=== PATIENT | female | born 1985 | race African-American/Black ===

== ENCOUNTER 2017-10-26 14:23 | Emergency (ER) | payer SELFPAY ==
[2017-10-26 15:29] LABS: Absolute Lymphocytes (CBC) 2.3 K/uL (0.7-4.9); Absolute Monocytes 0.4 K/uL (0.1-1.3); Basophils % 1.3 % (0-1.3); Eosinophils % 4.2 % (0-4.4); Hematocrit 34.3 % (36.0-45.0); Lymphocytes % 32.1 % (15.3-44.8); MPV 10.1 fL (7.6-11.3); Monocytes % 5.2 % (3.3-12.3); RBC Red Blood Cell Count 3.85 M/uL (3.86-4.86)
[2017-10-26 15:55] LABS: Blood Morphology Comment NOT SEEN (NOT SEEN); Platelet Estimate ADEQ; Urine White Blood Cell Casts OK
[2017-10-26 16:16] LABS: Potassium 4.1 mEq/L (3.6-5.0)
[2017-10-26 16:19] LABS: Protime INR 1.01
[2017-10-26 16:22] LABS: Albumin 3.9 g/dL (3.2-5.5); Bilirubin Direct 0.1 mg/dL (0-0.2); Bilirubin Total 0.2 mg/dL (0.3-1.2); Magnesium 1.8 mg/dL (1.8-2.5); Protein, Total 7.3 g/dL (6.0-8.3)
[2017-10-26 16:56] LABS: Urine Blood NEGATIVE (NEG); Urine Glucose NEGATIVE (NEG); Urine Protein NEGATIVE (NEG)
--- NOTE | 2017-10-26 17:44 | RAD REPORT ---
EXAM DESCRIPTION: CT - Chest For Pe Angio - 10/26/2017 5:40 pm CLINICAL HISTORY: Chest pain. COMPARISON: None. TECHNIQUE: CT angiogram of the pulmonary arteries was performed with MIP. All CT scans are performed using dose optimization technique as appropriate and may include automated exposure control or mA/KV adjustment according to patient size. FINDINGS: No evidence of pulmonary thromboembolism. No acute aortic finding demonstrated. The lungs are clear. No significant pericardial or pleural fluid. No concerning bony finding. Small hiatal hernia. IMPRESSION: No evidence of pulmonary thromboembolism. No acute lung findings.
--- NOTE | 2017-10-26 18:24 | ER ---
Nurse's Notes [facility] Name: Leona Kilpatrick Age: 32 yrs Sex: Female : 1985 Arrival Date: 10/26/2017 Time: 14:25 Bed 26 Private MD: Diagnosis: Chest pain, unspecified Presentation: 10/26 14:31 Presenting complaint: Patient states: I have been having chest pain, dizziness, arm la1 pain for the last week. Transition of care: patient was not received from another setting of care. Onset of symptoms was October 26, 2017. Initial Sepsis Screen: Does the patient meet any 2 criteria? No. Patient's initial sepsis screen is negative. Does the patient have a suspected source of infection? No. Patient's initial sepsis screen is negative. Care prior to arrival: None. 14:31 Method Of Arrival: Ambulatory la1 14:31 Acuity: MARLIN 3 la1 Triage Assessment: 14:31 Headache History: Denies prior headaches. General: Appears in no apparent distress. hj uncomfortable, Behavior is calm, cooperative, appropriate for age. 14:31 Pain: Pain Pain began Also complains of. Neuro: Level of Consciousness is awake, alert, hj obeys commands, Oriented to person, place, time, situation, Appropriate for age. 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 - Social history:: Smoking status: Patient/guardian denies using tobacco. Screenin:31 Abuse screen: Denies threats or abuse. Denies injuries from another. Nutritional hj screening: No deficits noted. Tuberculosis screening: No symptoms or risk factors identified. Fall Risk None identified. Assessment: 14:32 General: Appears in no apparent distress. uncomfortable, Behavior is calm, cooperative, hj appropriate for age. Pain: Complains of pain in head. Neuro: Level of Consciousness is awake, alert, obeys commands, Oriented to person, place, time, situation, Appropriate for age. Cardiovascular: Capillary refill < 3 seconds Patient's skin is warm and dry. Respiratory: Airway is patent Respiratory effort is even, unlabored, Respiratory pattern is regular, symmetrical. GI: No signs and/or symptoms were reported involving the gastrointestinal system. : No signs and/or symptoms were reported regarding the genitourinary system. EENT: No signs and/or symptoms were reported regarding the EENT system. Derm: No signs and/or symptoms reported regarding the dermatologic system. Musculoskeletal: No signs and/or symptoms reported regarding the musculoskeletal system. 15:30 Reassessment: Patient and/or family updated on plan of care and expected duration. Pain hj level reassessed. Patient is alert, oriented x 3, equal unlabored respirations, skin warm/dry/pink. 16:30 Reassessment: Patient and/or family updated on plan of care and expected duration. Pain hj level reassessed. Patient is alert, oriented x 3, equal unlabored respirations, skin warm/dry/pink. Patient states feeling better. 17:43 Reassessment: Patient and/or family updated on plan of care and expected duration. Pain hj level reassessed. Patient is alert, oriented x 3, equal unlabored respirations, skin warm/dry/pink. Patient states feeling better. Vital Signs: 14:32 BP 134 / 84; Pulse 91; Resp 19; Temp 98.4; Pulse Ox 100% on R/A; Weight 75.3 kg; Height la1 5 ft. 0 in. (152.40 cm); 15:30 BP 135 / 87; Pulse 90; Resp 18; Pulse Ox 100% on R/A; hj 16:30 BP 139 / 84; Pulse 88; Resp 18; Pulse Ox 100% on R/A; hj 17:56 BP 135 / 85; Pulse 89; Resp 18; Pulse Ox 100% on R/A; hj 18:13 BP 134 / 92 Supine; Pulse 88; Resp 16; Pulse Ox 100% on R/A; hj 18:13 BP 132 / 88 Sitting; Pulse 82; Resp 16; Pulse Ox 100% on R/A; hj 18:13 BP 144 / 90 Standing; Pulse 80; Resp 16; Pulse Ox 100% on R/A; hj 14:32 Body Mass Index 32.42 (75.30 kg, 152.40 cm) la1 ED Course: 14:25 Patient arrived in ED. rg4 14:31 Patient has correct armband on for positive identification. Placed in gown. Bed in low hj position. Call light in reach. Side rails up X 1. 14:32 Triage completed. la1 14:32 Arm band placed on left wrist. la1 14:37 Cipriano Campbell, RN is Primary Nurse. hj 14:51 Deng Kunz PA is PHCP. cp 14:51 Deng Washington MD is Attending Physician. cp 16:24 Notified Nurse Practitioner and/or Physician Warehouse And Receiving Supervisor of a critical lab result(s), la1 ddimer 686. 16:49 Radiology exam delayed due to IV insertion attempt and/or patient not having bq appropriate IV at this time. 17:21 Inserted saline lock: 20 gauge in left antecubital area, using aseptic technique. iw Missed attempt(s): 22 gauge in right antecubital area. Bleeding controlled, band aid applied, catheter tip intact. 17:40 CT completed. Patient moved to CT via wheelchair. Patient moved back from CT. bq 17:40 CT Chest For PE Angio In Process Unspecified. EDMS 18:40 No provider procedures requiring assistance completed. IV discontinued, intact, hj bleeding controlled, No redness/swelling at site. Pressure dressing applied. Administered Medications: No medications were administered Outcome: 18:23 Discharge ordered by MD. cp 18:40 Discharged to home ambulatory, with family. hj 18:40 Condition: stable 18:40 Discharge instructions given to patient, Instructed on discharge instructions, follow up and referral plans. Demonstrated understanding of instructions, follow-up care. 18:45 Patient left the ED. hj Signatures: Dispatcher [employer] EDNM Nevaeh Talbert Irene, RN RN iw Attema, Lee, RN RN la1 Cipriano Campbell RN RN hj Page, Corey, PA PA cp Garcia, Rubi 4
--- NOTE | 2017-10-26 18:24 | EDPHYS ---
Physician Documentation [facility] Name: Leona Kilpatrick Age: 32 yrs Sex: Female : 1985 Arrival Date: 10/26/2017 Time: 14:25 Bed 26 Private MD: ED Physician Deng Washington HPI: 10/26 15:23 This 32 yrs old Black Female presents to ER via Ambulatory with complaints of Headache, cp Dizziness, Numbness. 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 - Social history:: Smoking status: Patient/guardian denies using tobacco. ROS: 15:27 Constitutional: Negative for body aches, chills, fever, poor PO intake. cp 15:27 Eyes: Negative for injury, pain, redness, and discharge. cp 15:27 ENT: Negative for drainage from ear(s), ear pain, sore throat, difficulty swallowing, difficulty handling secretions. 15:27 Cardiovascular: Positive for chest pain, Negative for edema, palpitations. 15:27 Respiratory: Negative for cough, wheezing. 15:27 Abdomen/GI: Negative for abdominal pain, nausea, vomiting, and diarrhea, anorexia, black/tarry stool, rectal bleeding. 15:27 Back: Negative for pain at rest, pain with movement, radiated pain. 15:27 : Negative for urinary symptoms. 15:27 Skin: Negative for cellulitis, rash. 15:27 Neuro: Positive for intermittent dizziness, Negative for altered mental status, headache, syncope, near syncope, weakness. 15:27 All other systems are negative. Exam: 15:05 ECG was reviewed by the Attending Physician. cp 15:30 Constitutional: The patient appears in no acute distress, alert, awake, cp non-diaphoretic, non-toxic, well developed, well nourished. 15:30 Head/Face: Normocephalic, atraumatic. Eyes: Pupils equal round and reactive to light, cp extra-ocular motions intact. Lids and lashes normal. Conjunctiva and sclera are non-icteric and not injected. Cornea within normal limits. Periorbital areas with no swelling, redness, or edema. ENT: Nares patent. No nasal discharge, no septal abnormalities noted. Tympanic membranes are normal and external auditory canals are clear. Oropharynx with no redness, swelling, or masses, exudates, or evidence of obstruction, uvula midline. Mucous membranes moist. Chest/axilla: Normal chest wall appearance and motion. Nontender with no deformity. No lesions are appreciated. 15:30 Cardiovascular: Rate: normal, Rhythm: regular, Pulses: Pulses are 2+ in right radial artery and left radial artery. Heart sounds: murmur, not appreciated, rub, not appreciated, gallop, not appreciated, Edema: is not appreciated, JVD: is not appreciated. 15:30 Respiratory: the patient does not display signs of respiratory distress, Respirations: normal, no use of accessory muscles, no retractions, no splinting, no tachypnea, labored breathing, is not present, Breath sounds: are clear throughout, no decreased breath sounds, no stridor, no wheezing. 15:30 Abdomen/GI: Inspection: abdomen appears normal, Bowel sounds: active, all quadrants, Palpation: abdomen is soft and non-tender, in all quadrants, rebound tenderness, is not appreciated, voluntary guarding, is not appreciated, involuntary guarding, is not appreciated. 15:30 Back: pain, is absent, ROM is normal. 15:30 Skin: cellulitis, is not appreciated, no rash present. 15:30 Neuro: Orientation: to person, place \T\ time. Mentation: is normal, Cerebellar function: is grossly normal, Motor: moves all fours, strength is normal, Sensation: no obvious gross deficits. Vital Signs: 14:32 BP 134 / 84; Pulse 91; Resp 19; Temp 98.4; Pulse Ox 100% on R/A; Weight 75.3 kg; Height la1 5 ft. 0 in. (152.40 cm); 15:30 BP 135 / 87; Pulse 90; Resp 18; Pulse Ox 100% on R/A; hj 16:30 BP 139 / 84; Pulse 88; Resp 18; Pulse Ox 100% on R/A; hj 17:56 BP 135 / 85; Pulse 89; Resp 18; Pulse Ox 100% on R/A; hj 18:13 BP 134 / 92 Supine; Pulse 88; Resp 16; Pulse Ox 100% on R/A; hj 18:13 BP 132 / 88 Sitting; Pulse 82; Resp 16; Pulse Ox 100% on R/A; hj 18:13 BP 144 / 90 Standing; Pulse 80; Resp 16; Pulse Ox 100% on R/A; hj 14:32 Body Mass Index 32.42 (75.30 kg, 152.40 cm) la1 MDM: 14:51 Patient medically screened. cp 15:00 Differential diagnosis: cluster headache, migraine, otitis, sinusitis, pulmonary cp embolism, cardiac arrythmia, pneumothorax, electrolyte abnormality. 18:20 Data reviewed: vital signs, nurses notes, lab test result(s), EKG, radiologic studies, cp CT scan. 18:20 Test interpretation: by ED physician or midlevel provider: ECG. Counseling: I had a cp detailed discussion with the patient and/or guardian regarding: the historical points, exam findings, and any diagnostic results supporting the discharge/admit diagnosis, the presence of at least one elevated blood pressure reading (>120/80) during this emergency department visit, lab results, the need for outpatient follow up, to return to the emergency department if symptoms worsen or persist or if there are any questions or concerns that arise at home. 10/26 15:09 Order name: Basic Metabolic Panel; Complete Time: 16:24 cp 10/26 18:19 Interpretation: Normal except: GFR 78. 10/26 15:09 Order name: CBC with Diff; Complete Time: 16:24 cp 10/26 18:19 Interpretation: Normal except: RBC 3.85; HGB 11.5; HCT 34.3; PLT 143. 10/26 15:09 Order name: LFT's; Complete Time: 16:24 10/26 18:19 Interpretation: Normal except: ALK 38; BILIT 0.2. cp 10/26 15:09 Order name: Magnesium; Complete Time: 16:24 cp 10/26 15:09 Order name: PT-INR; Complete Time: 18:03 cp 10/26 15:09 Order name: Ptt, Activated; Complete Time: 18:03 cp 10/26 18:03 Interpretation: Abnormal: PTT 40.4. 10/26 14:52 Order name: EKG; Complete Time: 14:52 cp 10/26 14:52 Order name: EKG - Nurse/Tech; Complete Time: 14:56 cp 10/26 15:09 Order name: Troponin (emerg Dept Use Only); Complete Time: 16:24 cp 10/26 15:09 Order name: D-Dimer; Complete Time: 18:03 cp 10/26 18:03 Interpretation: Abnormal: D-DIMER 686. cp 10/26 15:37 Order name: CBC Smear Scan; Complete Time: 16:24 EDMS 10/26 16:26 Order name: CT Chest For PE Angio; Complete Time: 18:03 cp 10/26 18:03 Interpretation: Report reviewed. 10/26 16:40 Order name: Urine Dipstick--Ancillary (enter results); Complete Time: 18:03 eb 10/26 16:40 Order name: Urine --Ancillary (enter results); Complete Time: 18:03 eb 10/26 15:09 Order name: Urine Test (obtain specimen); Complete Time: 17:48 cp 10/26 15:09 Order name: Cardiac monitoring; Complete Time: 15:11 cp 10/26 15:09 Order name: IV Saline Lock; Complete Time: 15:50 cp 10/26 15:09 Order name: Labs collected and sent; Complete Time: 15:50 cp 10/26 15:09 Order name: O2 Per Protocol; Complete Time: 15:11 cp 10/26 15:09 Order name: O2 Sat Monitoring; Complete Time: 15:11 cp 10/26 15:09 Order name: Urine Dipstick-Ancillary (obtain specimen); Complete Time: 17:48 cp 10/26 15:09 Order name: Orthostatics; Complete Time: 18:14 cp 10/26 15:38 Order name: Labs - recollect needed; Complete Time: 15:49 eb EC:05 Rate is 73 beats/min. Rhythm is regular. NC interval is normal. QRS interval is normal. cp QT interval is normal. No ST changes noted. Interpreted by me. Reviewed by me. Administered Medications: No medications were administered Disposition: 10/26/17 18:23 Discharged to Home. Impression: Chest pain, unspecified. - Condition is Stable. - Discharge Instructions: Nonspecific Chest Pain, How to Take Your Blood Pressure, [id number], Aspirin and Your Heart. - Medication Reconciliation Form, Thank You Letter, Antibiotic Education, Prescription Opioid Use form. - Follow up: Private Physician; When: 2 - 3 days; Reason: Recheck today's complaints. - Problem is new. - Symptoms have improved. Addendum: 10/28/2017 09:08 Co-signature as Attending Physician, Deng Washington MD I agree with the assessment and c manjarrez plan of care. Signatures: Dispatcher [employer] EDDeng Rosa MD MD cha Attema, Lee RN RN la1 Cipriano Campbell RN RN hj Deng Kunz, Nithya Spicer cp
--- NOTE | 2017-10-28 07:20 | EKG ---
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
== END 2017-10-26 18:45 | disposition home or self-care (01) ==
LOC: ER 14:23
DX: R07.9 Chest pain, unspecified (principal); R42 Dizziness and giddiness
CPT/HCPCS: 36415; 71275; 80048; 80076; 81003; 81025; 83735; 84484; 85025; 85379; 85610; 85730; 93005; 99284; Q9967

== ENCOUNTER 2022-02-21 17:40 | Observation (INO) | payer SELFPAY ==
--- OUTSIDE RECORDS SUMMARY | 2022-02-21 17:42 | XMS REPORT | Continuity of Care Document ---
:1985 Author Organization [facility] t Address [address] [place] [address] Care Team Providers Name Role Phone MEHUL RÍOS Primary Care Physician Unavailable DANIEL LAZCANO Attending Clinician Unavailable Payers Payer Name Policy Type Policy Number Effective Date Expiration Date Tiera dewitt [id number] 2016 00:00:00 Problems This patient has no known problems. Allergies, Adverse Reactions, Alerts Allergy Allergy Status Severity Reaction(s) Onset Inactive Treating Comm ents Source Name Type Date Date Clinician NO KNOWN Drug Active [facility] Medications This patient has no known medications. Procedures This patient has no known procedures. Encounters Start End Encounter Admission Attending Care Care Encounter Source Date/Time Date/Time Type Type Clinicians Facility Department ID 2022-03-12 2022-03-12 Outpatient R NENO [facility] [id number] [facility] 08:15:00 08:15:00 DANIEL [id number] joey roman [facility] 2022-03-12 2022-03-12 Outpatient R NENO [facility] [id number] [facility] 08:15:00 08:15:00 DANIEL sonia [facility] Results This patient has no known results.
[2022-02-21 18:13] LABS: Absolute Lymphocytes (CBC) 0.9 K/uL (0.7-4.9); Hematocrit 33.8 % (36.0-45.0); Lymphocytes % 10.6 % (15.3-44.8); MCV 89.1 fL (80-100); MPV 9.2 fL (7.6-11.3); RBC Red Blood Cell Count 3.79 M/uL (3.86-4.86)
[2022-02-21 18:21] LABS: Urine Blood Trace-intact (Negative); Urine Glucose Negative (Negative); Urine Protein 2+ (Negative); Urine Specific Gravity 1.025 (1.005-1.030); Urine pH 5.5 (5.0-7.0)
[2022-02-21 18:54] LABS: ALT/SGPT 66 U/L (12-78); AST/SGOT 64 U/L (15-37); Albumin 3.4 g/dL (3.4-5.0); Alkaline Phosphatase 46 U/L (45-117); BUN Blood Urea Nitrogen 8 mg/dL (7-18); Bicarbonate 24 mmol/L (21-32); Bilirubin Direct 0.8 mg/dL (0-0.2); Bilirubin Total 1.5 mg/dL (0.2-1.0); Glomerular Filtration Rate 31 ml/min (=/>90); Glucose Level 98 mg/dL (74-106); Protein, Total 7.6 g/dL (6.4-8.2); Sodium Level 142 mmol/L (136-145)
[2022-02-21 18:54] LABS: Barbiturates NEGATIVE (NEGATIVE); Benzodiazepines NEGATIVE (NEGATIVE); Cocaine POSITIVE (NEGATIVE); METHAMPHETAM POSITIVE (NEGATIVE); Methadone NEGATIVE (NEGATIVE); Opiates NEGATIVE (NEGATIVE); Phencyclidine NEGATIVE (NEGATIVE); THC Cannibis NEGATIVE (NEGATIVE)
[2022-02-21 18:56] LABS: Potassium 2.8 mmol/L (3.5-5.1)
[2022-02-21 18:58] LABS: Urine Specific Gravity/Preg 1.025 (1.005-1.030)
--- NOTE | 2022-02-21 19:32 | ER ---
Nurse's Notes [facility] Name: Leona Kilpatrick Age: 36 yrs Sex: Female : 1985 Arrival Date: 02/21/2022 Time: 17:41 Bed 3 Private MD: Diagnosis: Anxiety disorder, unspecified;Adjustment disorder with depressed mood;Acute kidney failure, unspecified;Hypokalemia;Asymptomatic human immunodeficiency virus [HIV] infection status;Cocaine abuse;Adverse effect of amphetamines;UTI/ Urinary tract infection, site not specified Presentation: 02/21 17:42 Chief complaint: Patient states: P.D. found her jumping [place] and [place] of a wet [place]. ll1 Mental health deputy gave her a ride home. She suddenly started getting very anxious, hysterical, and N/V. EMS states: 20 G L AC, Ativan 4 mg IV given en route. Initial HR 140, VSS after IV ativan. Multiple stressors reported, recent HIV diagnosis, lost job, sent children to live in another state all in the past week. Coronavirus screen: At this time, the client does not indicate any symptoms associated with coronavirus-19. Ebola Screen: Patient denies travel to an Ebola-affected area in the 21 days before illness onset. Initial Sepsis Screen: Does the patient meet any 2 criteria? HR > 90 bpm. No. Patient's initial sepsis screen is negative. Does the patient have a suspected source of infection? No. Patient's initial sepsis screen is negative. Risk Assessment: Do you want to hurt yourself or someone else? Patient reports no desire to harm self or others. Onset of symptoms was February 21, 2022. 17:42 Method Of Arrival: EMS ll1 17:42 Acuity: MARLIN 2 ll1 Triage Assessment: 17:50 General: Appears in no apparent distress. well groomed, Behavior is listless. Pain: ll1 Denies pain. Neuro: Level of Consciousness is listless. GI: EMS reported N/V on scene. Historical: - Allergies: 17:41 unknown allergies; ll1 - PMHx: 17:41 recent HIV diagnosis; ll1 - PSHx: 17:41 Unable to Obtain; ll1 - Immunization history:: Adult Immunizations unknown. - Social history:: Smoking status: unknown. Screenin:21 Abuse screen: Denies threats or abuse. Nutritional screening: No deficits noted. bm7 Tuberculosis screening: Possible symptoms: positive for HIV. Fall Risk None identified. Assessment: 18:21 Reassessment: Patient and/or family updated on plan of care and expected duration. Pain bm7 level reassessed. Patient is alert, oriented x 3, equal unlabored respirations, skin warm/dry/pink. 18:55 Reassessment: Patient and/or family updated on plan of care and expected duration. Pain bm7 level reassessed. Patient is alert, oriented x 3, equal unlabored respirations, skin warm/dry/pink. 19:00 Reassessment: Pt is resting in bed with eyes closed, respirations are even and jb4 unlabored with no s/s of pain or distress noted. 20:23 Reassessment: Patient appears in no apparent distress at this time. No changes from jb4 previously documented assessment. 21:30 Reassessment: Pt remains resting in bed with eyes closed, respirations are even and jb4 unlabored with no s/s of pain or distress noted. 23:00 Reassessment: Patient appears in no apparent distress at this time. No changes from jb4 previously documented assessment. Patient and/or family updated on plan of care and expected duration. Pain level reassessed. 23:49 Reassessment: Patient appears in no apparent distress at this time. No changes from jb4 previously documented assessment. Patient and/or family updated on plan of care and expected duration. Pain level reassessed. Pt can be woken by verbal stimuli. Vital Signs: 17:42 BP 112 / 75; Pulse 120; Resp 17; Temp 99.2; Pulse Ox 99% ; Pain 0/10; ll1 18:20 BP 100 / 75; Pulse 108; Resp 18; Pulse Ox 100% on R/A; bm7 18:56 BP 107 / 82; Pulse 104; Resp 18; Pulse Ox 100% on R/A; bm7 20:00 BP 113 / 78; Pulse 99; Resp 19; Pulse Ox 100% on R/A; jb4 21:30 BP 105 / 79; Pulse 98; Resp 16; Pulse Ox 100% on R/A; jb4 23:00 BP 112 / 72; Pulse 97; Resp 15; Pulse Ox 100% on R/A; jb4 ED Course: 17:25 Arm band placed on Patient placed in an exam room, on a stretcher. ll1 17:41 Patient arrived in ED. jl7 17:49 Triage completed. ll1 17:51 Johnson Jin MD is Attending Physician. kdr 17:55 Erin Montana, RN is Primary Nurse. bm7 18:21 No apparent distress. Resting quietly. Awaiting lab results. bm7 18:21 Patient has correct armband on for positive identification. Bed in low position. Call bm7 light in reach. Side rails up X2. Adult w/ patient. Client placed on continuous cardiac and pulse oximetry monitoring. NIBP monitoring applied. hall monitor on. Warm blanket given. 18:21 Initial lab(s) drawn, by nd, sent to lab. Urine collected: straight cath specimen, [facility] clear, EKG done, by ED staff, reviewed by Erin Montana RN. Maintain EMS IV. Dressing intact. Good blood return noted. Site clean \T\ dry. Gauge \T\ site: 20G LAC. Patient maintains SpO2 saturation greater than 95% on room air. 19:[address] bm7 19:12 CT Head C Spine In Process Unspecified. EDMS 19:13 Patient moved back from CT. bm7 19:17 Attending Physician role handed off by Johnson Jin MD saul 19:17 Deng Washington MD is Attending Physician. saul 19:29 Lauri Estrella MD is Hospitalizing Provider. saul 20:36 Chest Single View XRAY In Process Unspecified. EDMS 20:41 CT Stone Protocol In Process Unspecified. EDMS 23:44 No provider procedures requiring assistance completed. Patient admitted, IV remains in jb4 place. 02/22 07:07 Primary Nurse role handed off by Erin Montana, RN bp 07:07 Pop James, RN is Primary Nurse. bp Administered Medications: 02/21 19:49 Not Given (Patient Refused): Potassium Effervescent Tablet 25 mEq PO once; dissolve in kl 4 ounces of water or juice 19:55 Not Given (Duplicate Order): Potassium Chloride 20 mEq IV at per protocol once; saul administer over 1-2 hours 20:07 Drug: Rocephin (cefTRIAXone) 1 grams Route: IV; Rate: per protocol; Site: left jb4 antecubital; 20:10 Follow up: IV Status: Completed infusion jb4 20:18 Drug: NS 0.9% 1000 ml Route: IV; Rate: 1 bolus; Site: left antecubital; jb4 21:30 Follow up: Response: No adverse reaction; Marked relief of symptoms; IV Status: jb4 Completed infusion; IV Intake: 1000ml 20:18 Drug: Potassium Chloride 20 mEq Route: IV; Rate: per protocol; Site: left antecubital; jb4 21:30 Follow up: Response: No adverse reaction; IV Status: Completed infusion; IV Intake: jb4 100ml 21:57 Drug: NS 0.9% with KCl 20 mEq/L 1000 ml Route: IV; Rate: 125 ml/hr; Site: left jb4 antecubital; Medication: 18:21 VIS not applicable for this client. bm7 Intake: 21:30 IV: 1000ml; Total: 1000ml. jb4 21:30 IV: 100ml; Total: 1100ml. jb4 Outcome: 19:31 Decision to Hospitalize by Provider. saul 23:44 Admitted to ER Hold. Please see [facility] for further documentation. jb4 23:44 Condition: stable 23:44 Discharge instructions given to family, Instructed on the need for admit, Demonstrated understanding of instructions. 02/22 12:32 Patient left the ED. iw Signatures: Dispatcher [employer] EDDeng Rosa MD MD cha Rittger, Kevin, MD MD kdr Williams, Irene RN RIAZ iw Ramesh Pitts RN RN Liliana Treviño RN RN jl7 Peltier, Brian, RN RN bp Lewis, Lynsay, RN RN 1 Erin Montana RN RN bm7 Lewis, Kimberly RN kl Corrections: (The following items were deleted from the chart) 02/21 17:42 15:25 Arm band placed on Patient placed in an exam room, on a stretcher, ll1 ll1 17:50 17:42 Chief complaint: Patient states: P.D. found her jumping in and out of a wet ll1 canal. Mental health deputy gave her a ride home. She suddenly started getting very anxious, hysterical, and N/V. EMS states: 20 G L AC, Ativan 4 mg IV given en route. Initial HR 140, VSS after IV ativan ll1
--- NOTE | 2022-02-21 19:32 | EDPHYS ---
Physician Documentation [facility] Name: Leona Kilpatrick Age: 36 yrs Sex: Female : 1985 Arrival Date: 02/21/2022 Time: 17:41 Bed 3 Private MD: ED Physician Deng Washington HPI: 02/21 18:07 This 36 yrs old Black Female presents to ER via EMS with complaints of Psych Problem. kdr 18:07 The patient presents to the emergency department with depression, over unknown kdr circumstances, EMS reports that they along with the police department were called to the patient's location where she apparently was having a psychotic break. They report that this week she learned that she was HIV positive, she lost her employment and her kids were sent away to somewhere remote in the [place] to live. It is unknown whether there were any other contributing factors or what activity she may have been involved in today prior to being found. It is unknown if she has been drinking or has consumed any other medications which may have negative impact on her survival at this time. On my initial assessment the patient is unresponsive. Her vital signs are stable and her saturations 100%.. Onset: The symptoms/episode began/occurred at an unknown time. Past psychiatric history: Unknown. Associated signs and symptoms: The patient has no apparent associated signs or symptoms. Severity of symptoms: At their worst the symptoms were incapacitating in the emergency department the symptoms are unchanged. It is unknown whether or not the patient has had similar symptoms in the past. It is unknown whether or not the patient has recently seen a physician. Historical: - Allergies: 17:41 unknown allergies; ll1 - PMHx: 17:41 recent HIV diagnosis; ll1 - PSHx: 17:41 Unable to Obtain; ll1 - Immunization history:: Adult Immunizations unknown. - Social history:: Smoking status: unknown. ROS: 18:07 Constitutional: Negative for fever, chills, and weight loss. kdr 18:07 Unable to obtain ROS due to altered mental status, comatose state, obtunded state. Exam: 18:07 Head/Face: Normocephalic, atraumatic. Eyes: Pupils equal round and reactive to light, kdr extra-ocular motions intact. Lids and lashes normal. Conjunctiva and sclera are non-icteric and not injected. Cornea within normal limits. Periorbital areas with no swelling, redness, or edema. Neck: Trachea midline, no thyromegaly or masses palpated, and no cervical lymphadenopathy. Supple, full range of motion without nuchal rigidity, or vertebral point tenderness. No Meningismus. Chest/axilla: Normal chest wall appearance and motion. Nontender with no deformity. No lesions are appreciated. Cardiovascular: Regular rate and rhythm with a normal S1 and S2. No gallops, murmurs, or rubs. Normal PMI, no JVD. No pulse deficits. Respiratory: Lungs have equal breath sounds bilaterally, clear to auscultation and percussion. No rales, rhonchi or wheezes noted. No increased work of breathing, no retractions or nasal flaring. Abdomen/GI: Soft, non-tender, with normal bowel sounds. No distension or tympany. No guarding or rebound. No evidence of tenderness throughout. Back: No spinal tenderness. No costovertebral tenderness. Full range of motion. Skin: Warm, dry with normal turgor. Normal color with no rashes, no lesions, and no evidence of cellulitis. MS/ Extremity: Pulses equal, no cyanosis. Neurovascular intact. Full, normal range of motion. 18:07 Constitutional: The patient appears comatose. 18:32 ECG was reviewed by the Attending Physician. kdr Vital Signs: 17:42 BP 112 / 75; Pulse 120; Resp 17; Temp 99.2; Pulse Ox 99% ; Pain 0/10; ll1 18:20 BP 100 / 75; Pulse 108; Resp 18; Pulse Ox 100% on R/A; bm7 18:56 BP 107 / 82; Pulse 104; Resp 18; Pulse Ox 100% on R/A; bm7 20:00 BP 113 / 78; Pulse 99; Resp 19; Pulse Ox 100% on R/A; jb4 21:30 BP 105 / 79; Pulse 98; Resp 16; Pulse Ox 100% on R/A; jb4 23:00 BP 112 / 72; Pulse 97; Resp 15; Pulse Ox 100% on R/A; jb4 MDM: 19:17 Patient medically screened. saul 19:26 Differential diagnosis: acute psychotic break, depression, psychosis secondary to saul non-compliance. Data reviewed: vital signs, nurses notes, EMS record, lab test result(s), EKG, radiologic studies, CT scan, plain films. Data interpreted: electronic device monitor: rate is 104 beats/min, rhythm is regular, Pulse oximetry: on room air is 100 %. Test interpretation: by ED physician or midlevel provider: ECG, plain radiologic studies. Counseling: I had a detailed discussion with the patient and/or guardian regarding: the historical points, exam findings, and any diagnostic results supporting the discharge/admit diagnosis, lab results, radiology results, the need for further work-up and treatment in the hospital. 02/21 17:53 Order name: Acetaminophen; Complete Time: 19:20 [facility] 02/21 17:53 Order name: Basic Metabolic Panel; Complete Time: 19:20 [facility] 02/21 17:53 Order name: CBC with Diff; Complete Time: 19:20 [facility] 02/21 17:53 Order name: ETOH Level; Complete Time: 19:20 [facility] 02/21 17:53 Order name: Hepatic Function; Complete Time: 19:20 [facility] 02/21 17:53 Order name: Salicylate; Complete Time: 19:20 [facility] 02/21 17:53 Order name: Urine Drug Screen; Complete Time: 19: [facility] 02/21 18:21 Order name: Urine Dipstick-Ancillary; Complete Time: 19:20 [facility] 02/21 18:23 Order name: Urine --Ancillary (enter results); Complete Time: 19:20 02/21 19:22 Order name: Urine Culture [facility] 02/21 19:27 Order name: SARS RAPID; Complete Time: 20:46 [facility] 02/22 02:45 Order name: CBC with Automated Diff; Complete Time: 03:54 [facility] 02/22 02:59 Order name: Basic Metabolic Panel; Complete Time: 03:10 [facility] 02/22 02:59 Order name: Phosphorus; Complete Time: 03:10 [facility] 02/21 17:53 Order name: IV Saline Lock; Complete Time: 18:20 [facility] 02/21 17:53 Order name: Labs collected and sent; Complete Time: 18:20 [facility] 02/21 17:53 Order name: Suicide Screening (Collins); Complete Time: 18:20 [facility] 02/21 17:53 Order name: Urine Dipstick-Ancillary (obtain specimen); Complete Time: 18:20 [facility] 02/21 18:32 Order name: CT Head C Spine; Complete Time: 19:54 [facility] 02/21 19:24 Order name: CT Stone Protocol; Complete Time: 20:52 [facility] 02/21 19:27 Order name: Chest Single View XRAY; Complete Time: 20:52 [facility] 02/22 02:59 Order name: Magnesium; Complete Time: 03:10 [facility]PR 02/22 03:43 Order name: CBC Smear Scan; Complete Time: 03:54 EDPR 02/22 04:50 Order name: Urinalysis EDPR 02/21 17:53 Order name: Urine Test (obtain specimen); Complete Time: 18:20 kdr EC:32 Rate is 106 beats/min. Rhythm is regular, Sinus tachycardia with No ectopy. QRS Allison is kdr Normal. [place] interval is normal. QRS interval is normal. QT interval is normal. Clinical impression: Sinus tachycardia. Administered Medications: 19:49 Not Given (Patient Refused): Potassium Effervescent Tablet 25 mEq PO once; dissolve in kl 4 ounces of water or juice 19:55 Not Given (Duplicate Order): Potassium Chloride 20 mEq IV at per protocol once; saul administer over 1-2 hours 20:07 Drug: Rocephin (cefTRIAXone) 1 grams Route: IV; Rate: per protocol; Site: left [facility] antecubital; 20:10 Follow up: IV Status: Completed infusion [facility] 20:18 Drug: NS 0.9% 1000 ml Route: IV; Rate: 1 bolus; Site: left antecubital; [facility] 21:30 Follow up: Response: No adverse reaction; Marked relief of symptoms; IV Status: jb4 Completed infusion; IV Intake: 1000ml 20:18 Drug: Potassium Chloride 20 mEq Route: IV; Rate: per protocol; Site: left antecubital; [facility] 21:30 Follow up: Response: No adverse reaction; IV Status: Completed infusion; IV Intake: jb4 100ml 21:57 Drug: NS 0.9% with KCl 20 mEq/L 1000 ml Route: IV; Rate: 125 ml/hr; Site: left 4 antecubital; Disposition Summary: 02/21/22 19:31 Hospitalization Ordered Hospitalization Status: Observation saul Provider: Lauri Estrella cha Condition: Fair saul Problem: new saul Symptoms: have improved saul Bed/Room Type: Standard saul Location: [facility] ER HOLD(02/21/22 23:22) eb1 Room Assignment: ERHOLD-(02/21/22 23:22) eb1 Diagnosis - Anxiety disorder, unspecified saul - Adjustment disorder with depressed mood saul - Acute kidney failure, unspecified saul - Hypokalemia saul - Asymptomatic human immunodeficiency virus [HIV] infection status saul - Cocaine abuse saul - Adverse effect of amphetamines saul - UTI/ Urinary tract infection, site not specified saul Forms: - Medication Reconciliation Form saul - SBAR form saul Signatures: Dispatcher [employer] EDDeng Rosa MD MD cha Rittger, Kevin, MD MD kdr Bryson, James, RN RN jb4 Megan Garcia RN RN eb1 Ignacio Todd RN RN ll1 Melina Castellano PA PA sb3 Hailey Todd RN kl Corrections: (The following items were deleted from the chart) 19:31 Telemetry/MedSurg (observation) [facility] eb1 19:31 saul eb1
--- NOTE | 2022-02-21 19:32 | RAD REPORT ---
EXAM DESCRIPTION: CT - CTHCSPWOC - 02/21/2022 7:11 pm CLINICAL HISTORY: Trauma, head and neck injury. Altered mental status COMPARISON: No comparisons TECHNIQUE: Axial 5 mm thick images of the head were obtained. Axial 2 mm thick images of the cervical spine were obtained with sagittal and coronal reconstruction images generated and reviewed. All CT scans are performed using dose optimization technique as appropriate and may include automated exposure control or mA/KV adjustment according to patient size. FINDINGS: CT HEAD WITHOUT CONTRAST: No acute hemorrhage, hydrocephalus or extra-axial collection is identified.Remote appearing right bas al ganglia/ leger radiata infarct. The paranasal sinuses and mastoids are clear.The calvarium is intact. CT CERVICAL SPINE WITHOUT CONTRAST: No fracture or subluxation.No prevertebral soft tissues swelling is identified. IMPRESSION: No acute intracranial or cervical spine findings.Small right basal ganglia/leger radiat a infarct which is likely chronic.
[2022-02-21] MEDS ORDERED: KCL 20 MEQ/100 mL IVPB 100 ML IV ONE (20:07)
[2022-02-21] MEDS ORDERED: CEFTRIAXONE 1000 MG/VIAL ONE (20:07)
[2022-02-21] MEDS ORDERED: NS KCL 20MEQ 1,000 ML IV ONE (20:07)
[2022-02-21] MEDS ORDERED: NA CHLORIDE 0.9% 1,000 ML ONE (20:07)
[2022-02-21 20:33] LABS: SARS-CoV-2 Antigen Rapid Res Negative (Negative)
--- NOTE | 2022-02-21 20:46 | RAD REPORT ---
EXAM DESCRIPTION: RAD - Chest Single View - 02/21/2022 8:34 pm CLINICAL HISTORY: COUGH COMPARISON: Stone Protocol dated 02/21/2022 FINDINGS: Lines: None. Lungs: No evidence of edema or pneumonia. Pleural: No significant pleural effusions or pneumothorax. Cardiac: The heart size is within normal limits. Bones: No acute fractures. Other: IMPRESSION: No acute cardiopulmonary disease.
--- NOTE | 2022-02-21 20:50 | RAD REPORT ---
EXAM DESCRIPTION: [facility] - 02/21/2022 8:39 pm CLINICAL HISTORY: Flank pain, kidney stone suspected COMPARISON: No comparisons TECHNIQUE: CT of the abdomen and pelvis was performed. All CT scans are performed using dose optimization technique as appropriate and may include automated exposure control or mA/KV adjustment according to patient size. FINDINGS: Lower chest: No acute abnormality. Liver: No acute abnormality or suspicious lesions. Biliary: No biliary ductal dilatation. Stomach: No significant focal abnormality. Duodenum: No significant focal abnormality. Pancreas: No significant abnormality. Spleen: No significant abnormality. Adrenal: No suspicious lesions. Kidney/ureter: No hydronephrosis. 3 mm stone in the lower pole left kidney. Retroperitoneum: No retroperitoneal adenopathy. Vascular: No aneurysm. Bowel: Normal appendix .. Question segmental distal sigmoid wall thickening. Peritoneum: No ascites or free air. Bladder: Grossly unremarkable. Reproductive: No adnexal masses. Bones: No acute fracture. Other: n/a IMPRESSION: No acute intra-abdominal or pelvic finding. Nonobstructive left nephrolithiasis. Normal appendix. Underdistention versus mild colitis at the distal sigmoid.
--- NOTE | 2022-02-21 23:53 | P.HP ---
Certification for Inpatient Patient admitted to: Observation With expected LOS: <2 Midnights Patient will require the following post-hospital care: None Practitioner: I am a practitioner with admitting privileges, knowledge of patient current condition, hospital course, and medical plan of care. Services: Services provided to patient in accordance with Admission requirements found in Title 42 Section 412.3 of the Code of Federal Regulations Patient History Date of Service: 02/22/22 Reason for admission: SABAS, UTI History of Present Illness: Patient is a 36 year-old female who presented to the ED via EMS after she was founding acting strangely. She was given 4 mg ativan en route as she appeared to experiencing a panic attack. Patient apparently has been experiencing a lot of social stressors- children moving out of state, recent HIV diagnosis. Vital signs stable upon arrival to ED. Her labs are significant for potassium 2.8, creatinine 2, urine positive for UTI. UDS positive for cocaine and meth. Patient is very sleepy but arousable during my assessment (as she did receive 4 mg ativan from EMS) and is not very cooperative giving history. She denies any medical problems or current complaints. She was given Rocephin and IVF with supplemental potassium. ED provider wishes to admit patient for observation given SABAS, UTI, and hypokalemia. Allergies No Known Allergies Allergy (Unverified 10/26/17 18:49) Home Medications: NK [No Home Meds] 02/21/22 - Past Medical/Surgical History -: HIV Past Surgical History: Unable to obtain Psychosocial/ Personal History: Patient lives at home. She has 2 children. - Family History Family History: Reviewed- Non-Contributory - Social History Smoking Status: Unknown if ever smoked Alcohol use: Yes CD- Drugs: Yes Caffeine use: Yes Place of Residence: Home Review of Systems Unremarkable Physical Examination - Physical Exam General: Alert, In no apparent distress HEENT: Atraumatic, PERRLA, EOMI, Sclerae nonicteric Neck: Supple, 2+ carotid pulse no bruit, No LAD, Without JVD or thyroid abnormality Respiratory: Clear to auscultation bilaterally, Normal air movement Cardiovascular: Regular rate/rhythm, Normal S1 S2 Gastrointestinal: Normal bowel sounds, No tenderness Musculoskeletal: No tenderness Integumentary: No rashes Neurological: Normal speech, Normal strength at 5/5 x4 extr, Normal tone, Normal affect - Studies Laboratory Data (last 24 hrs) 02/21/22 18:00: WBC 8.10, Hgb 11.3 L, Hct 33.8 L, Plt Count 200 02/21/22 18:00: Sodium 142, Potassium 2.8 L*, BUN 8, Creatinine 2.05 H, Glucose 98, Total Bilirubin 1.5 H, AST 64 H, ALT 66, Alkaline Phosphatase 46 Assessment and Plan - Problems (Diagnosis) (1) SABAS (acute kidney injury) Current Visit: Yes Status: Acute (2) Hypokalemia Current Visit: Yes Status: Acute (3) UTI (urinary tract infection) Current Visit: Yes Status: Acute Qualifiers: Urinary tract infection type: acute cystitis Hematuria presence: with hematuria Qualified Code(s): N30.01 - Acute cystitis with hematuria (4) Cocaine abuse Current Visit: Yes Status: Acute (5) Methamphetamine abuse Current Visit: Yes Status: Acute (6) Major depressive disorder Current Visit: Yes Status: Acute Qualifiers: Major depression recurrence: unspecified whether recurrent Active/Remission status: currently active Major depression episode severity: moderate Qualified Code(s): F32.1 - Major depressive disorder, single episode, moderate (7) Generalized anxiety disorder Current Visit: Yes Status: Chronic - Plan -Continue IV fluids with supplemental potassium -Recheck BMP in morning -Clonazepam PRN. Patient will require psychiatry on an outpatient basis -Continue rocephin for UTI -Monitor and replete electrolytes per protocol -Reconcile and continue home medications -Lovenox for VTE ppx -Full code Discharge Plan: Home Plan to discharge in: 24 Hours - Advance Directives Does patient have a Living Will: No Does patient have a Durable POA for Healthcare: No - Code Status/Comfort Care Code Status Assessed: Yes (Full) Critical Care: No Time Spent Managing Pts Care (In Minutes): 50
[2022-02-22] VITALS: BMI 26.0
[2022-02-22] MEDS ORDERED: clonazePAM 0.5 MG TAB PO PRN (00:13)
[2022-02-22] MEDS: NS KCL 20MEQ 20 MEQ/1,000 ML BAG IV SCH ×2 (00:13→10:13)
[2022-02-22] MEDS ORDERED: ACETAMINOPHEN 500 MG TAB PO PRN (00:13)
[2022-02-22] MEDS ORDERED: ONDANSETRON 4 MG/2 ML VIAL IV PRN (00:13)
[2022-02-22 02:44] LABS: Absolute Lymphocytes (CBC) 1.9 K/uL (0.7-4.9); Hematocrit 34.9 % (36.0-45.0); Lymphocytes % 20.6 % (15.3-44.8); MCV 90.2 fL (80-100); MPV 9.9 fL (7.6-11.3); RBC Red Blood Cell Count 3.87 M/uL (3.86-4.86)
[2022-02-22 02:52] LABS: Magnesium 1.8 mg/dL (1.8-2.4); Phosphorus 4.1 mg/dL (2.5-4.9); Potassium 4.6 mmol/L (3.5-5.1)
[2022-02-22 03:43] LABS: Blood Morphology Comment NOT SEEN (NOT SEEN); Platelet Estimate ADEQ; White Blood Cell Scan OK (OK)
[2022-02-22 04:50] LABS: Specific Gravity >= 1.030 (1.005-1.030); Urine Blood 2+ (Negative); Urine Clarity Clear (Clear); Urine Color Yellow (Yellow); Urine Glucose Negative (Negative); Urine Protein 1+ (Negative); Urine pH 5.5 (5.0-7.0)
[2022-02-22 05:27] LABS: Urine Bacteria 20-50 /HPF (<20); Urine RBC <5 /HPF (None Seen)
[2022-02-22 05:40] LABS: Urine Bilirubin NEGATIVE (Negative)
[2022-02-22] MEDS ORDERED: MAGNESIUM SULFATE 1 gm IVPB 1 GM/100 ML BAG IV ONE ×2 (07:00→09:22)
[2022-02-22] MEDS ORDERED: CEFTRIAXONE 1,000 MG in NA CHLORIDE 0.9% 50 ML IVPB SCH (09:00)
[2022-02-22] MEDS ORDERED: ENOXAPARIN 40 MG/0.4 ML SQ SCH (09:00)
[2022-02-22] MEDS ORDERED: CEFTRIAXONE 1000 MG/VIAL ONE (09:22)
--- NOTE | 2022-02-22 11:53 | P.DS ---
Discharge Date: 02/22/22 Disposition: ROUTINE DISCHARGE Discharge Condition: GOOD Reason for Admission: SABAS, UTI Brief History of Present Illness: Patient is a 36 year-old female who presented to the ED via EMS after she was founding acting strangely. She was given 4 mg ativan en route as she appeared to experiencing a panic attack. Patient apparently has been experiencing a lot of social stressors- children moving out of state, recent HIV diagnosis. Vital signs stable upon arrival to ED. Her labs are significant for potassium 2.8, creatinine 2, urine positive for UTI. UDS positive for cocaine and meth. Patient is very sleepy but arousable during my assessment (as she did receive 4 mg ativan from EMS) and is not very cooperative giving history. She denies any medical problems or current complaints. She was given Rocephin and IVF with supplemental potassium. ED provider wishes to admit patient for observation given SABAS, UTI, and hypokalemia. Hospital Course: She is clinically doing well. She has been having a vaginal discharge so we will treat her with antibiotics. She has been dealing with bipolar disorder and schizoaffective disorder for which she has remained untreated. At this time, patient continues to do well. I will go ahead and discharge patient home with outpatient follow-up. Vital Signs/Physical Exam: Temp Pulse Resp BP Pulse Ox 96.8 F 100 H 25 H 133/96 H 97 02/22/22 04:00 02/22/22 08:00 02/22/22 08:00 02/22/22 08:00 02/22/22 08:00 General: Alert, In no apparent distress, Oriented x3 Laboratory Data at Discharge: WBC 9.20 K/uL (4.3-10.9) 02/22/22 02:22 Hgb 11.4 g/dL (12.0-15.0) L 02/22/22 02:22 Hct 34.9 % (36.0-45.0) L 02/22/22 02:22 Plt Count 162 K/uL (152-406) 02/22/22 02:22 Sodium 144 mmol/L (136-145) 02/22/22 02:22 Potassium 4.6 mmol/L (3.5-5.1) D 02/22/22 02:22 BUN 9 mg/dL (7-18) 02/22/22 02:22 Creatinine 1.18 mg/dL (0.55-1.3) 02/22/22 02:22 Glucose 84 mg/dL (74-106) 02/22/22 02:22 Phosphorus 4.1 mg/dL (2.5-4.9) 02/22/22 02:22 Magnesium 1.8 mg/dL (1.8-2.4) 02/22/22 02:22 Total Bilirubin 1.5 mg/dL (0.2-1.0) H 02/21/22 18:00 AST 64 U/L (15-37) H 02/21/22 18:00 ALT 66 U/L (12-78) 02/21/22 18:00 Alkaline Phosphatase 46 U/L (45-117) 02/21/22 18:00 Home Medications: Cefdinir [Omnicef] 300 mg PO BID #10 02/22/22 Cefdinir [Omnicef] 300 mg PO BID #10 02/22/22 clonazePAM [Klonopin] 0.5 mg PO TID #30 02/22/22 clonazePAM [Klonopin] 0.5 mg PO TID #30 02/22/22 metroNIDAZOLE [Flagyl*] 500 mg PO Q8H #20 02/22/22 metroNIDAZOLE [Flagyl] 500 mg PO Q8H #20 02/22/22 New Medications: metroNIDAZOLE [Flagyl] 500 mg PO Q8H #20 metroNIDAZOLE [Flagyl*] 500 mg PO Q8H #20 clonazePAM [Klonopin] 0.5 mg PO TID #30 clonazePAM [Klonopin] 0.5 mg PO TID #30 Cefdinir [Omnicef] 300 mg PO BID #10 Cefdinir [Omnicef] 300 mg PO BID #10 Physician Discharge Instructions: -DC-DC IV and DC home -Follow-up with PCP in 1 to 2 weeks -Follow-up with psychiatry in 1 to 2 weeks -Please call Dr. Estrella at [phone] if any questions regarding hospital stay -Please call nursing station at [phone] if any nursing or medication questions -Return to the emergency room if symptoms worsen Diet: Regular Activity: Fall precautions Followup: Brandt Dowell [ACTIVE - CAN ADMIT] - NONE,NONE [Primary Care Provider] - Time spent managing pt's care (in minutes): 35
[2022-02-22] MEDS ORDERED: metroNIDAZOLE 500 MG TABLET PO ONE (13:00)
[2022-02-22 13:10] VITALS: TEMP 99.2; O2SAT 100
[2022-02-22 13:18] VITALS: BP 112/72
--- NOTE | 2022-02-22 15:12 | EKG ---
Test Date: 2022-02-21 Test Time: 18:25:57 Damper Maker: MILLIE MEASUREMENT RESULTS: Intervals: Rate: 106 IN: 138 QRSD: 86 QT: 388 QTc: 515 Cougar: P: 87 IN: 138 QRS: 76 T: 52 INTERPRETIVE STATEMENTS: Sinus tachycardia Otherwise normal ECG Compared to ECG 10/26/2017 14:57:28 Sinus rhythm no longer present Electronically Signed On 02-22-22 15:11:37 CDT by Adeel Latham
== END 2022-02-22 12:33 | disposition home or self-care (01) ==
LOC: ER 17:40 → ERHOLD 22:18
PROVIDERS: ADMIT Hospitalist; ATTEND Hospitalist
DX: N17.9 Acute kidney failure, unspecified (principal); E87.6 Hypokalemia; N39.0 Urinary tract infection, site not specified; N89.8 Other specified noninflammatory disorders of vagina; B20 Human immunodeficiency virus [HIV] disease; F32.1 Major depressive disorder, single episode, moderate; F41.1 Generalized anxiety disorder; F14.10 Cocaine abuse, uncomplicated; F15.10 Other stimulant abuse, uncomplicated; F31.9 Bipolar disorder, unspecified; F25.9 Schizoaffective disorder, unspecified; Z20.822 Contact with and (suspected) exposure to COVID-19
CPT/HCPCS: 36415; 70450; 71045; 72125; 74176; 76377; 80048; 80076; 80307; 80320; 80329; 81001; 81003; 81025; 83735; 84100; 85025; 87086; 87088; 87811; 93005; 96365; 96375; 99285; G0378; J3475; J3480; J7030